=== PATIENT | male | born 1980 | race Caucasian/White ===

== ENCOUNTER 2024-12-20 07:08 | Emergency (ER) | payer MEDICAID, SELFPAY ==
[2024-12-20] VITALS (34 sets, daily range): BP systolic 91–124; BP diastolic 53–103; PULSE 47–73; RESP 10–21; TEMP 36.9; O2SAT 93–100
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
--- NOTE | 2024-12-20 08:00 | DI.US_ITS ---
Exam(s) US LOWER EXTREMITY VENOUS LT EXAM: US LOWER EXTREMITY VENOUS LT CLINICAL HISTORY: left leg swelling TECHNIQUE: Left lower extremity venous ultrasound performed using grayscale, color-flow, and spectral Doppler analysis. COMPARISON: No exams were available for comparison FINDINGS: The left common femoral, femoral and popliteal veins demonstrate normal compressibility, augmentation, and color Doppler. The posterior tibial veins are patent. The saphenofemoral junction is unremarkable. There is no evidence of a Hall cyst. The soft tissues are unremarkable. IMPRESSION: No evidence of a left lower extremity DVT. DATA REPOSITORY:
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
--- NOTE | 2024-12-20 08:40 | NUR.NOTE ---
08:18 pt placed in c collar as requested by provider. 08:20 this rn attempted iv with us guidance. pt is restless and not cooperative. no iv established at this time. 08:30 Pt moved to er 4 as requested by provider. pt placed on vs monitor and co2 monitoring as requested by provider. pt is at baseline from arrival. pt arousable to voice and stimulation. 08:35 this rn again attempted us iv access without success. dr murray aware maya charge coordinator aware. Nursing Note:
--- NOTE | 2024-12-20 10:54 | NUR.NOTE ---
Pt does not have IV access at this time. See previous documentation. project management intern and provider aware. Nursing Note:
--- NOTE | 2024-12-20 11:24 | NUR.NOTE ---
pt refusing all care including IV. This rn and Dianelys trujillo rn at bedside to attempt IV. Pt continuing to refuse. Dr Esparza made aware. Nursing Note:
== END 2024-12-20 20:16 ==
PROVIDERS: Emergency Provider Emergency Medicine
DX: L03.116 Cellulitis of left lower limb (principal)
CPT/HCPCS: 99285; 99284; 00123; 80053; 82805; 70450; 72125; 80320; 85025; 85379; 93971

== ENCOUNTER 2024-12-20 19:37 | Emergency (ER) | payer OTHER, SELFPAY ==
[2024-12-20] VITALS (21 sets, daily range): BP systolic 96–142; BP diastolic 56–91; PULSE 48–72; RESP 11–35; O2SAT 96–100
--- NOTE | 2024-12-20 19:31 | ED.GENADUL_ITS ---
Discharge Plan Disposition Patient Disposition: [facility] Condition: Stable Discharge Details Clinical Impression: Altered mental status Primary Care Provider: None,None ED Provider: Nicholas Chung Home Meds and New Rx's Prescriptions: Continued methadone [Dolophine] 10 MG tablet 60 mg PO DAILY chlordiazepoxide HCl 25 MG capsule 25 mg PO BID Discharge Instructions Additional Instructions: Your exam today was reassuring. Follow-up with the medical providers as needed at the [facility]. Return to the emergency department if you feel more ill or feel you are suffering from an emergent medical process HPI General Mode of arrival: EMS . Date/Time Provider Initiated Documentation: 12/20/24 21:01 . Limitations to Documentation: no limitations . Information obtained by: patient and EMS . History of Present Illness 44 year old M presents to the emergency department with the chief complaint of ?seizure like activity, described as moderate, Quality is described as aching, Patient started experiencing this day(s) (1) and it has been now resolved. No relieving factors improve symptom(s), No exacerbating factors reported . Patient notes no other symptoms.. Patient did receive the following treatments prior to arrival, none Related Data Home Medications ?Medication ?Instructions ?Recorded ?Confirmed methadone 10 mg tablet (Dolophine) 60 mg PO DAILY 07/1007/28/13 chlordiazepoxide HCl 25 mg capsule 25 mg PO BID 07/28/13 Allergies Allergy/AdvReac Type Severity Reaction Status Date / Time No Known Allergies Allergy Unverified 07/28/13 13:54 General Stated Complaint: Seizure MARLEN: 3 Review of Systems All systems reviewed & are unremarkable except as noted in HPI and below Constitutional Constitutional: Denies chills and Denies fever(s) Cardiovascular Cardiovascular: Denies chest pain and Denies dyspnea Respiratory Respiratory: Denies cough and Denies dyspnea Gastrointestinal Gastrointestinal: Denies abdominal pain, Denies nausea and Denies vomiting Neurologic Neurologic: Reports seizure-like activity Exam Const General: no acute distress Orientation: alert HENMT Head: normal to inspection Ears: external ears normal General nose exam: external nose normal Mouth: moist mucous membranes Eyes General: appearance normal, both eyes and all related structures Neck Neck: normal visual inspection Resp Effort & Inspection: normal respiratory effort and able to speak in complete sentences Cardio Rate: regular rate Skin General skin exam: no rashes or lesions noted Neuro General: patient alert, patient oriented x3 and CN's II-XI intact bilaterally Cognition: normal cognition Speech: speech normal Extrem General: normal to inspection Psych Mental Status: mental status grossly normal Course Vital Signs Vital signs: Vital Signs Pulse 58 L 12/20/24 19:22 Respiratory Rate 20 12/20/24 19:22 Blood Pressure 125/65 12/20/24 19:22 Pulse Oximetry 100 12/20/24 19:22 Pulse 58 L 12/20/24 19:22 Respiratory Rate 20 12/20/24 19:22 Blood Pressure 125/65 12/20/24 19:22 Blood Pressure Position Supine 12/20/24 19:22 Pulse Oximetry 100 12/20/24 19:22 Oxygen Delivery Method Room Air 12/20/24 19:22 Oxygen Flow Rate 0 12/20/24 19:22 Medical Decision Making 44-year-old male with a history of substance abuse primarily fentanyl who was incarcerated today and was seen earlier today after he was apprehended by police with a negative CT head and C-spine as well as DVT study and was [facility] [place] [facility] comes in after there was question of seizure-like activity at the [facility]. EMS found the patient lethargic and gave him Narcan and started answering questions. When I entered the room the patient was sleeping and not responding to me when I asked the nurse to grab more Narcan the patient opened his eyes electively and started answering questions appropriately. He says he uses fentanyl regularly. Denies any excessive alcohol use. He denies any other drug use currently. He is moving all extremities well now. No signs of trauma to the head. Pupils are equal and reactive to light. Given he had a negative head CT earlier today and he has no signs of trauma to the head I do not feel imaging of his head is indicated. Unclear if this was actually true seizure- like activity. Will observe here and check CBC CMP and urine drug screen Patient was ambulating without issues and lab work without emergent finding. No recurrent seizure-like activity. Unclear if this was actually seizure activity. Given reassuring workup and observation here I feel he can be discharged back to the [place] [facility] and can follow-up with her medical providers Differential Diagnosis Differential Diagnosis: Drug withdrawal, nonepileptic psychogenic movements Medical Records Medical records reviewed: Yes I reviewed the patient's medical records. PFSH All Active Problems (Updated 12/20/24 @ 21:49 by Nicholas Chung MD) Altered mental status (Acute) Cellulitis of left leg (Acute) Social History Smoking/Tobacco Use Status: Current every day Smoking risk assessment performed?: Yes Drug use: Daily Substance use type: opiates and other Details: per pt used fentanyl today Housing: homeless
--- NOTE | 2024-12-20 19:42 | NUR.NOTE ---
Nursing Note: Pt with seizure event. MD Chung to bedside, pt unresponsive to RN but then adamantly yelled No when told he was going to receive narcan. Per MD plan to keep him on tele, send labs, and monitor. [facility]rections officers at bedside aware of plan.
[2024-12-20 20:26] LABS: Abs Immature Grans 0.02 10^3/uL (0.0-0.06); HCT 34.7 % (40.0-50.0); HGB 11.5 g/dL (13.5-17.5); Immature Grans % 0.3 %; MCH 28.3 pg (27.0-33.0); MCHC 33.1 % (32.0-36.0); MCV 86 fL (80-95); MPV 9.2 fL (8.0-11.0); Platelet Count 335 10^3/uL (130-400); RBC 4.06 10^6/uL (4.36-5.78); RDW 13.3 % (11.8-14.1); RDW-SD 41.9 fL; WBC 7.95 10^3/uL (4.4-10.8)
[2024-12-20 20:38] LABS: Cannabinoids THC Negative (Negative); METHADONE URINE SCREEN Negative (Negative)
[2024-12-20 20:53] LABS: ALT 17 U/L (16-63); AST 23 U/L (15-37); Albumin 3.0 g/dL (3.4-5.0); Alkaline Phosphatase 82 U/L (46-116); Anion Gap 10.6 mmol/L (3-11); BUN 8 mg/dL (7-18); Bilirubin, Total 0.8 mg/dL (0.2-1.0); CO2 25.4 mmol/L (21.0-32.0); Calcium 8.7 mg/dL (8.5-10.1); Chloride 105 mmol/L (98-107); Estimated GFR 117.98 (mL/min/1.73m2); Glucose 101 mg/dL (74-106); Magnesium 1.9 mg/dL (1.8-2.4); Potassium 3.2 mmol/L (3.5-5.1); Sodium 141 mmol/L (136-145); Total Protein 7.3 g/dL (6.4-8.2)
== END 2024-12-20 21:57 ==
PROVIDERS: Emergency Provider Emergency Medicine
DX: R41.82 Altered mental status, unspecified (principal)
CPT/HCPCS: 99283; 99285; 80053; 80307; 83735; 85025